=== PATIENT | female | born 1960 | race Caucasian/White ===

== ENCOUNTER 2021-04-22 21:07 | Observation (INO) ==
[2021-04-22] MEDS ORDERED: Morphine 4 MG/ML VIAL (1 ml) IV ONE (23:41)
[2021-04-22] MEDS ORDERED: Ondansetron 4 mg VIAL 2 MG/ML 2 ml VIAL IV ONE (23:42)
[2021-04-23 00:15] LABS: ABS Eosinophils 0.1 10^3/ul (0-0.6); ABS Lymphocytes 0.8 10^3/ul (1.0-4.8); ABS Monocytes 0.8 10^3/ul (0-0.8); ABS Neutrophils 9.7 10^3/ul (1.5-7.7); Eosinophil % 0.6 %; Hematocrit 35 % (35-47); Hemoglobin 11.9 g/dL (12.0-16.0); Lymphocyte % 7.2 %; Mean Corpuscular HGB Conc 35 g/dL (31-36); Mean Corpuscular Hemoglobin 33 pg (27-31); Mean Corpuscular Volume 96 fL (80-97); Mean Platelet Volume 6.8 fL (7.4-10.4); Platelet Count 246 10^3/uL (150-450); Red Blood Count 3.59 10^6 /uL (3.70-4.87); Red Cell Distribution Width 12 % (10-15); White Blood Count 11.4 10^3/uL (3.5-10.8)
[2021-04-23 00:36] LABS: ALT 13 U/L (7-52); AST 14 U/L (13-39); Albumin 3.8 g/dL (3.2-5.2); Albumin/Globulin Ratio 1.3 (1-3); Alkaline Phosphatase 77 U/L (35-149); Anion Gap 6 mmol/L (2-11); Blood Urea Nitrogen 7 mg/dL (6-24); C Reactive Protein 39.42 mg/L (<8.01); CO2 Carbon Dioxide 26 mmol/L (22-32); Calcium 8.9 mg/dL (8.6-10.3); Chloride 97 mmol/L (101-111); EGFR African American 89.2 (>60); EGFR Non-African American 73.7 (>60); Globulin 2.9 g/dL (2-4); Glucose 115 mg/dL (70-100); Lipase < 10 U/L (11.0-82.0); Potassium 3.7 mmol/L (3.5-5.0); Sodium 129 mmol/L (135-145); Total Protein 6.7 g/dL (6.4-8.9)
[2021-04-23] MEDS ORDERED: Iohexol 300 (CONTRAST) 10 ML SDV IV ONE (01:23)
[2021-04-23] MEDS ORDERED: Morphine 4 MG/ML VIAL (1 ml) IV ONE (01:51)
[2021-04-23] MEDS ORDERED: ceFOXitin 1 GM in NS 0.9% 50 ML 50 ML IVPB ONE (03:57)
[2021-04-23] MEDS ORDERED: HYDROmorphone 1 MG/1 ML SYRINGE IV SLOW PU PRN (04:15)
[2021-04-23] MEDS ORDERED: Ondansetron 4 mg VIAL 2 MG/ML 2 ml VIAL IV PRN (04:15)
[2021-04-23] MEDS ORDERED: metroNIDAZOLE IV 500 MG/100ML - ED ONCE IVPB ONE (05:00)
[2021-04-23] MEDS ORDERED: metroNIDAZOLE IV 500 MG/100ML 500 MG/100 ML BAG IVPB SCH ×2 (06:00)
[2021-04-23] MEDS ORDERED: ceFOXitin 2 GM PREMIX 50 ML IVPB ONE (06:00)
[2021-04-23] MEDS: Lactated Ringers 1000 ml BAG 1,000 ML IV SCH ×3 (06:05→19:54)
[2021-04-23] MEDS ORDERED: Bupivacaine 0.25% EPI 200,000 30 ML SDV ONE (08:29)
[2021-04-23] MEDS ORDERED: ceFOXitin 2 GM IVPREMIX 2 GM/50 ML BAG ONE (09:05)
[2021-04-23] MEDS ORDERED: Sodium Citrate/Citric Acid LIQ 15 ML UDC ONE (09:18)
[2021-04-23] MEDS ORDERED: Sodium Citrate/Citric Acid LIQ 15 ML UDC PO ONE (09:21)
[2021-04-23] MEDS ORDERED: Buffered Lidocaine 1% SYRIN 1 ml INTRADERM ONE (09:21)
[2021-04-23] MEDS ORDERED: Dexamethasone IV 4 MG/ML VIAL 1 ml VIAL IV SLOW PU ONE (09:21)
[2021-04-23] MEDS ORDERED: Dexamethasone IV 4 MG/ML VIAL 1 ml VIAL ONE (09:22)
[2021-04-23] MEDS ORDERED: Lidocaine 2% PF 5 ML VIAL ONE (09:34)
[2021-04-23] MEDS ORDERED: Propofol 10 MG/ML 20 ML BTL ONE (09:34)
[2021-04-23] MEDS ORDERED: fentaNYL 100 mcg/2 ml 50 MCG/ML VIAL ONE ×2 (09:34→10:13)
[2021-04-23] MEDS ORDERED: Succinylcholine 200 mg VIAL 20 mg/ml 10 ml VIAL (200 mg) ONE (09:34)
[2021-04-23] MEDS ORDERED: Rocuronium 50 mg VIAL 10 mg/ml 5 ml VIAL (50 mg) ONE (09:36)
[2021-04-23] MEDS ORDERED: EPHEDrine (Pressors) 50 MG/ML VIAL ONE (09:51)
[2021-04-23] MEDS ORDERED: Lactated Ringers 1000 ml BAG 1,000 ML IV SCH (10:00)
[2021-04-23] MEDS ORDERED: Ondansetron 4 mg VIAL 2 MG/ML 2 ml VIAL ONE (10:25)
[2021-04-23] MEDS ORDERED: Sugammadex 500 MG/5 ML 5 ml VIAL IV PUSH ONE (10:32)
[2021-04-23] MEDS ORDERED: oxyCODONE/Acetamin 5/325 mg TAB PO PRN ×3 (10:56→11:51)
[2021-04-23] MEDS ORDERED: Naloxone 0.4 mg VIAL 0.4 mg/ml 1 ml VIAL IV PRN (10:56)
[2021-04-23] MEDS ORDERED: fentaNYL 100 mcg/2 ml 50 MCG/ML VIAL IV PRN (10:56)
[2021-04-23] MEDS ORDERED: Prochlorperazine 5 mg/ml 2 ml VIAL (10 mg) IV PRN (10:56)
[2021-04-23] MEDS ORDERED: HYDROcodone/ACETAMIN 5/325 mg TAB PO PRN (10:56)
[2021-04-24] MEDS: Lactated Ringers 1000 ml BAG 1,000 ML IV SCH (04:33)
[2021-04-24 07:39] VITALS: BP 146/79
== END 2021-04-24 12:05 | disposition home or self-care (01) ==
LOC: ED 21:07 → SSU 04-23 05:22 → INTOOBSV 04-23 05:22 → SSU 04-23 06:00
PROVIDERS: ADMIT Surgery; ATTEND Surgery